=== PATIENT | male | born 1945 | race Caucasian/White ===

== ENCOUNTER 2025-04-11 14:07 | Outpatient (CLI) | payer MEDICARE, BC, SELFPAY ==
--- NOTE | 2025-04-11 14:30 | MR_ITS ---
EXAM: MRI EXAMINATION OF THE LEFT SHOULDER CLINICAL INFORMATION: Left shoulder pain. No history of surgery to this area. Possible rotator cuff tear. TECHNICAL INFORMATION: Coronal STIR as well as axial, sagittal and coronal PD and T2-weighted images acquired. No prior studies for comparison. INTERPRETATION: Bones: There is no Hill-Sachs impaction deformity. Minimal osseous cystic changes alongside the AC joint. No other bone marrow edema pattern. Rotator Cuff: Full thickness, full width tears are identified involving the supraspinatus and infraspinatus tendons. Maximal tendon retraction midway between the glenohumeral joint and mid humeral head level. Marked fatty atrophy involves the infraspinatus muscle belly. The teres minor tendon is intact. Mild to moderate subscapularis tendinopathy. Coracoacromial arch: There is no discrete subacromial osseous spur. The bony acromiohumeral interval is measuring 7 mm. There is no thickening identified of the coracoacromial ligament. Acromioclavicular joint: Moderate AC joint DJD. No deformity of the underlying supraspinatus tendon. Biceps tendon: The long head biceps tendon is intact and nondisplaced from the bicipital groove. There are moderate changes of intra-articular tendinopathy. Glenohumeral joint and labrum: There is a small glenohumeral joint effusion. No discrete loose body within the joint. Patchy chondromalacia along the far posterior margin of the glenoid. There is a 1.2 cm segment of grade IV chondromalacia overlying the superomedial aspect of the humeral head. Blunting and mild tearing involves the superior aspect of the labrum. Blunting and mild tear involves the superior and inferior quadrants of the posterior labrum. There is tearing and fraying of the anteroinferior labrum. No discrete paralabral cyst is identified. CONCLUSION: 1. Full-thickness, full width tears involving the supraspinatus and infraspinatus tendons. Maximal tendon retraction is midway between the glenohumeral joint and mid humeral head level. Marked infraspinatus muscle belly atrophy. 2. Mild to moderate subscapularis tendinopathy. 3. Moderate AC joint DJD with borderline narrowed acromiohumeral interval. 4. Moderate intra-articular long head biceps tendinopathy. 5. There is a moderate-sized segment of grade IV chondromalacia overlying the superomedial humeral head. Additional patchy chondromalacia along the far posterior margin of the glenoid. KES Electronically signed on 04/12/2025 10:14:00 AM by Jl Boss M.D.
== END 2025-04-11 14:08 | disposition home or self-care (01) ==
LOC: MRI 14:11
PROVIDERS: PCP Internal Medicine; Visit Provider Orthopaedic Surgery
DX: M25.512 Pain in left shoulder (principal); M75.102 Unspecified rotator cuff tear or rupture of left shoulder, not specified as traumatic; M19.012 Primary osteoarthritis, left shoulder; M94.212 Chondromalacia, left shoulder
CPT/HCPCS: 73221

== ENCOUNTER 2025-05-14 06:52 | Day surgery (SDC) | payer MEDICARE, BC, SELFPAY ==
[2025-05-14] VITALS (22 sets, daily range): BP systolic 108–166; BP diastolic 55–99; PULSE 58–78; RESP 12–20; TEMP 36.2–37.1; O2SAT 90–98; BMI 40.3
[2025-05-14] MEDS: SODIUM CHLORIDE 0.9 % (FLUSH) 10 ML SYRINGE IVF (07:58)
[2025-05-14] MEDS: LACTATED RINGERS 1000 ML 1,000 ML 100 ML IV ×2 (07:58→12:25)
[2025-05-14] MEDS: CELECOXIB 200 MG CAPSULE PO (07:58)
[2025-05-14] MEDS: OXYCODONE (CR) 10 MG TAB.ER.12H PO (07:58)
[2025-05-14] MEDS: ACETAMINOPHEN 500 MG TABLET 1000 MG PO ×3 (07:59→20:37)
[2025-05-14] MEDS: MIDAZOLAM HCL 1 MG/ML inj IVP (09:26)
--- NOTE | 2025-05-14 09:33 | P.NB_ITS ---
Nerve Block Nerve Block Time Seen by Provider: 09:30 Date Seen: 05/14/25 Type of block requested by surgeon for post-operative analgesia: supraclavicular Side: left Time out performed: Yes Verification of patient name: Yes Verification of date of : Yes Site marking: site marked Name of person performing procedure: Jong Continuous monitoring Was continuous monitoring of O2 sat, B/P, html web developer, recorded every 15 minutes?: Yes Procedure Checklist: sterile prep, needles and gloves Ultrasound guided. Images saved: Yes Medications given in 5ml increments after negative aspiration: Ropivicaine %: 0.5 mL: 20 Needle gauge: 22 Precedex (mcg): 25 Patient tolerated procedure well: Yes Block Charges Block Charge (with Pro Fee): Brachial Plexus Use of Ultrasound Machine for Block: Yes- US Guidance/pain block
--- NOTE | 2025-05-14 09:33 | SUR.PREOP ---
TIME?OUT:?09 PT/RN/MDA?VERIFICATION?OF?SURGICAL?SITE,?PROCEDURE,?AND?CONSENT OBTAINED?PRIOR?TO?INVASIVE?PROCEDURE.
--- NOTE | 2025-05-14 09:34 | P.ANES_ITS ---
Anesthesia Charges Start Date/Time Anesthesia Start Date: 05/14/25 Anesthesia Start Time: 09:48 Stop Date/Time Anesthesia Stop Date: 05/14/25 Anesthesia Stop Time: 12:27 Summary Extremes of Age - Over 70 or under 1: MDA Coding CPT Codes CPT Codes: ANESTH SHOULDER REPLACEMENT - 30327 ([id number]) P3 - PATIENT W/SEVERE SYS DISEASE, QK - WHOLESALE LOAN PROCESSOR 2-4 CNCRNT ANES PROC, QX - DIRECTOR OF STUDENT AFFAIRS SVC W/ MD MED DIRECTION Additional Codes: Summary - Extremes of Age - Over 70 or under 1: MDA ([id number])
--- NOTE | 2025-05-14 09:34 | W.ANESCHARGE ---
Anesthesia Charges Start Date/Time Anesthesia Start Date: 05/14/25 Anesthesia Start Time: 09:48 Stop Date/Time Anesthesia Stop Date: 05/14/25 Anesthesia Stop Time: 12:27 Summary Extremes of Age - Over 70 or under 1: MDA Coding CPT Codes CPT Codes: ANESTH SHOULDER REPLACEMENT - 31693 ([id number]) P3 - PATIENT W/SEVERE SYS DISEASE, QK - COMPLIANCE ENGINEER PRODUCTS 2-4 CNCRNT ANES PROC, QX - ORTHOTIC AND PROSTHETIC TECHNICIAN SVC W/ MD MED DIRECTION Additional Codes: Summary - Extremes of Age - Over 70 or under 1: MDA ([id number])
[2025-05-14] MEDS: TRANEXAMIC ACID 100 MG/ML INJ 1000 MG IV (10:14)
--- NOTE | 2025-05-14 11:58 | CRLHL7_ITS ---
For Patients: As a result of the Cures Act, medical imaging exams and procedure reports are released immediately into your electronic medical record. You may view this report before your referring provider. If you have questions, please contact your health care provider. Indication: Postop Technique: Two views left shoulder Findings/Impression: Hardware from a left reverse total shoulder arthroplasty is in satisfactory position. Bone alignment is normal. No sign of acute fracture. Postop changes are within normal limits. Dictated by Awais Segovia MD @ 05/14/2025 4:09:59 PM (Electronically Signed)
--- NOTE | 2025-05-14 12:09 | PM.ORPRC ---
Procedure Note Date of procedure: 05/14/25 Procedure: PREOPERATIVE DIAGNOSIS: Left shoulder rotator cuff tear arthropathy POSTOPERATIVE DIAGNOSIS: Left shoulder rotator cuff tear arthropathy NAME OF OPERATION: Left upper extremity reverse shoulder arthroplasty, biceps tenodesis SURGEON: Chandu Up MD SUPERVISOR PAINTING DEPARTMENT: ELMO Marcano ANESTHESIA: General endotracheal ESTIMATED BLOOD LOSS: 200 mL COMPLICATIONS: None SPECIMENS: None DRAINS: None PREOPERATIVE ANTIBIOTICS: Ancef 3 grams IMPLANTS: 1. Tornier 25mm x 40mm baseplate 2. 39 mm standard glenosphere 3. 6B humeral stem 4. High eccentric +0 humeral tray 5. 39mm +6 polyethylene INDICATIONS: The patient is a 80-year-old with a longstanding history of severe, unrelenting left shoulder pain secondary to rotator cuff tear arthropathy. Despite appropriate nonoperative management, including activity modification, anti-inflammatories, [id number] pain medication, physical therapy, and injections they continue to have pain and disability. Operative intervention was offered. The risks, benefits and expected outcomes were discussed in detail. These included but were not limited to: Infection, bleeding, injury to blood vessel or nerve, venous thromboembolism. All questions were answered to their satisfaction. Use of an assistant drafter was necessary throughout the case for patient positioning and safety, soft tissue retraction, and closure. PROCEDURE: General anesthesia was administered. The patient was placed in the lazy beach chair position on the operating room table. The left upper extremity was prepped and draped in the usual sterile fashion. A standard deltopectoral incision was made. Subcutaneous dissection was taken with electrocautery to the deltopectoral interval. The cephalic vein was mobilized, lateral branches were cauterized. The vein was taken medially with the pectoralis. We bluntly entered the deltopectoral interval. We freed up the deltoid. The upper 1/3 of the insertion of the pectoralis was divided with cautery. The static retractor was placed. The clavipectoral fascia and CA ligament were divided. The circumflex vessels were controlled with electrocautery. The biceps was dissected out of the bicipital groove, was tagged with a #2 FiberWire suture and divided proximally. A fiberWire suture was placed in the subscapularis. The subscap was subperiosteally elevated off of the lesser tuberosity. The humeral head was delivered into the wound. The intramedullary humeral cutting guide was placed. We made the cut at the anatomic neck, in 30? of retroversion. Humeral sounds were used to assess the diameter of the canal. The broach was placed and had good rotational stability. The calcar reamer was used and the protective base plate cover was placed. Attention was then turned to the glenoid. Hohmann retractors were placed posteriorly. The labrum and biceps stump were sharply debrided. The origin of the inferior glenohumeral ligaments were subperiosteally released off of the glenoid. The drill guide was placed. The guide pin was placed in 0? of cephalic tilt. The reamer was used to bleeding bone. The central drill was used x2. The tap was used. The standard base plate was placed. This had excellent purchase. Locking screws x 2 were placed. The glenosphere was placed, the set screw was tightened. Attention then returned to the humerus. We placed a high eccentric standard base plate and standard poly. We reduced the shoulder and took it through a range of motion. It was found to be stable with appropriate soft tissue tension. Trial humeral components were removed. The biceps was tenodesed in the bicipital groove with drill holes and our previously placed FiberWire suture. We placed #2 FiberWire sutures in the lesser tuberosity for subsequent subscap repair. We assembled the humeral component on the back table. We placed it in the center of our subscapularis repair sutures and tapped it down to our humeral cut. This had excellent purchase. The shoulder was reduced and again was found to be stable with appropriate soft tissue tension. We did a 3 min dilute Betadine solution soak. We irrigated the wound with 3 L of normal saline via pulse lavage. We repaired the subscapularis to the lesser tuberosity with our previously placed FiberWire sutures. The deltopectoral interval was loosely reapproximated with an 0 Vicryl in an interrupted [id number] fashion. Subcutaneous tissues were closed with the 2-0 Vicryl and a running 3-0 Monocryl suture. The skin was sealed with glue. A dry dressing and sling were applied. Sponge and needle counts were correct x2. The patient tolerated the procedure well, there were no apparent complications. They were awakened and extubated in the operating room, taken to the postanesthesia care unit in satisfactory condition. PLAN: The patient will be mobilized with physical therapy. The sling will be used for 6 weeks postoperatively. Active range of motion in forward flexion and abduction as tolerates. No external rotation greater than 0? for 6 weeks postoperatively. They will be discharged to home once medically appropriate.
--- NOTE | 2025-05-14 12:29 | P.ANES_ITS ---
Anesthesia Charges Start Date/Time Anesthesia Start Date: 05/14/25 Anesthesia Start Time: 09:48 Stop Date/Time Anesthesia Stop Date: 05/14/25 Anesthesia Stop Time: 12:27 Summary Extremes of Age - Over 70 or under 1: DAY HAUL OR FARM CHARTER BUS DRIVER Coding CPT Codes CPT Codes: ANESTH SHOULDER REPLACEMENT - 59869 ([id number]) P3 - PATIENT W/SEVERE SYS DISEASE, QK - MACHINE CLERICAL VERIFIER 2-4 CNCRNT ANES PROC, QX - DAY HAUL OR FARM CHARTER BUS DRIVER SVC W/ MD MED DIRECTION Additional Codes: Summary - Extremes of Age - Over 70 or under 1: DAY HAUL OR FARM CHARTER BUS DRIVER ([id number])
--- NOTE | 2025-05-14 12:29 | W.ANESCHARGE ---
Anesthesia Charges Start Date/Time Anesthesia Start Date: 05/14/25 Anesthesia Start Time: 09:48 Stop Date/Time Anesthesia Stop Date: 05/14/25 Anesthesia Stop Time: 12:27 Summary Extremes of Age - Over 70 or under 1: REFERENCE ASSISTANT Coding CPT Codes CPT Codes: ANESTH SHOULDER REPLACEMENT - 76050 ([id number]) P3 - PATIENT W/SEVERE SYS DISEASE, QK - DENTAL SECRETARY 2-4 CNCRNT ANES PROC, QX - REFERENCE ASSISTANT SVC W/ MD MED DIRECTION Additional Codes: Summary - Extremes of Age - Over 70 or under 1: REFERENCE ASSISTANT ([id number])
[2025-05-14] MEDS: CEFAZOLIN 3 GM in 0.9 % SODIUM CHLORIDE Mini-bag 100 ML IVPB ×2 (17:55→23:45)
--- NOTE | 2025-05-14 19:33 | PC.NURSE ---
End of shift-- Very pleasant and cooperative patient arrived from PACU at approximately 1300. VSS and pt is afebrile. SPO2 was noted to be 87-88% on RA and O2 was applied at 2L per n.c. He rated his pain from 3-4 out of 10 and was given Dilaudid and Oxy in addition to scheduled Tylenol and stated that pain was tolerable. Dressing to left shoulder is C/D/I and CMS was WNL. LS CTA. He denied nausea and tolerated a regular diet without difficulty. Report to RIZWANA Thompson.
--- NOTE | 2025-05-14 19:39 | PC.NURSE ---
End of Shift: Patient pleasant and cooperative. Patient vitally stable, lungs clear, BS WNL, IV SL and intact. Patient reports left shoulder pain 1-/, 5 mg of oxy given, and active ice used. Patient currently using cpap, but was titrated down from 2 L of oxygen NS while awake. Patient SBA with ambulation. Patient tolerating regular diet and urinating well. Left shoulder dressing C/D/I.
--- NOTE | 2025-05-14 20:29 | PM.IMCN1 ---
Date of Consult Consult date: 05/14/25 Primary Care Provider: Corrina Penn MD Consult Narrative Reason for consult: Medical comanagement perioperatively. Narrative: Ben Rosario is a 80 year old male with PMH significant for hypertension, hyperlipidemia, BPH, HFrEF, ASCVD s/p 3 vessel CABG, paroxysmal atrial fibrillation, AUDRA on CPAP, GERD, thoracic aortic aneurysm, prior DVT and reasonably well controlled DMII who presented to the hospital for left reverse total surgery. He is seen postoperatively and doing well. Denies chest pain, shortness of breath and nausea. Review of Systems Status of ROS: Reports: 10 or more systems reviewed and unremarkable except as noted in History and below [facility] Medical History (Updated 05/14/25 @ 20:51 by Adry Bello MD) Thoracic aortic aneurysm, without rupture, unspecified ?I71.20 - Thoracic aortic aneurysm, without rupture, unspecified (ICD-10) Paroxysmal atrial fibrillation ?I48.0 - Paroxysmal atrial fibrillation (ICD-10) Chronic systolic (congestive) heart failure ?I50.22 - Chronic systolic (congestive) heart failure (ICD-10) Hypertension ?I10 - Essential (primary) hypertension (ICD-10) Hypertrophy of prostate without urinary obstruction ?N40.0 - Benign prostatic hyperplasia without lower urinary tract symptoms (ICD-10) Primary osteoarthritis involving multiple joints ?M15.0 - Primary generalized (osteo)arthritis (ICD-10) Noise-induced hearing loss ?H83.3X9 - Noise effects on inner ear, unspecified ear (ICD-10) SCC (squamous cell carcinoma) ?C44.92 - Squamous cell carcinoma of skin, unspecified (ICD-10) Deep vein thrombosis (DVT) of left lower extremity (05/21/19) ?I82.402 - Acute embolism and thrombosis of unspecified deep veins of left lower extremity (ICD-10) AUDRA on CPAP ?G47.33 - Obstructive sleep apnea (adult) (pediatric) (ICD-10) Erectile dysfunction ?N52.9 - Male erectile dysfunction, unspecified (ICD-10) Arteriosclerotic heart disease (ASHD) ?I25.10 - Atherosclerotic heart disease of [place] coronary artery without angina pectoris (ICD-10) Mixed hyperlipidemia ?E78.2 - Mixed hyperlipidemia (ICD-10) Leg swelling ?M79.89 - Other specified soft tissue disorders (ICD-10) Type 2 diabetes mellitus ?E11.9 - Type 2 diabetes mellitus without complications (ICD-10) Surgical History S/P CABG x 3 ?Z95.1 - Presence of aortocoronary bypass graft (ICD-10) History of phacoemulsification of cataract of left eye with intraocular lens implantation (03/24/22) ?Z98.42 - Cataract extraction status, left eye (ICD-10) ?Z96.1 - Presence of intraocular lens (ICD-10) History of blepharoplasty (01/28/16) ?Z98.890 - Other specified postprocedural states (ICD-10) History of phacoemulsification of cataract of right eye with intraocular lens implantation (04/07/22) ?Z98.41 - Cataract extraction status, right eye (ICD-10) ?Z96.1 - Presence of intraocular lens (ICD-10) S/P right rotator cuff repair (2012) ?Z98.890 - Other specified postprocedural states (ICD-10) Coronary artery disease involving coronary bypass graft (05/07/19) ?I25.810 - Atherosclerosis of coronary artery bypass graft(s) without angina pectoris (ICD-10) History of cholecystectomy (2006) ?Z90.49 - Acquired absence of other specified parts of digestive tract (ICD-10) S/P angioplasty with stent (07/2001) ?Z95.820 - Peripheral vascular angioplasty status with implants and grafts (ICD-10) History of esophagogastroduodenoscopy (EGD) ?Z98.890 - Other specified postprocedural states (ICD-10) History of total right hip replacement (10/28/08) ?Z96.641 - Presence of right artificial hip joint (ICD-10) History of total left hip replacement (12/2008) ?Z96.642 - Presence of left artificial hip joint (ICD-10) Social History Narrative: former chewing tobacco (2000) Life partner-Elis What is your current living situation?: I presently have a place to live Problems where you live: no known problems In the past 12 months, utilities in danger of being shut off: no In past 12 months, lack of transportation kept you from medical appts, meetings, work, or getting things needed for daily living: no In the past 12 mos, have been you worried that your food would run out before you had money to buy more?: never true In the past 12 mos, the food you bought just didn't last and you didn't have money to buy more?: never true Smoking Status: Never smoker Do you use any of these nicotine containing products: Smokeless Tobacco How often do you have a drink containing alcohol: 4 or more times a week Alcohol type: beer How many standard drinks containing alcohol do you have on a typical day: 3 or 4 How often do you have six or more drinks on one occasion: Never AUDIT-C Alcohol total score: 5 Non-prescribed substance use: denies use Caffeine: Yes (2-3c/day) How often does anyone, including family, friends and others, physically hurt you: never How often does anyone, including family, friends and others, insult or talk down to you: never How often does anyone, including family, friends and others, threaten you with harm: never How often does anyone, including family, friends and others, scream or curse at you: never service: Yes Meds Home Medications and Allergies Home Medications ?Medication ?Instructions ?Recorded ?Confirmed ?Type amlodipine 5 mg tablet 5 mg PO DAILY 04/03/25 05/14/25 History empagliflozin 25 mg tablet 25 mg PO DAILY 04/03/25 05/14/25 History (Jardiance) furosemide 40 mg tablet 40 mg PO Q48H 04/03/25 05/14/25 History glimepiride 4 mg tablet 8 mg PO DAILY 04/03/25 05/14/25 History losartan 50 mg-hydrochlorothiazide 1 tab PO DAILY 04/03/25 05/14/25 History 12.5 mg tablet metformin 1,000 mg tablet 1,000 mg PO BIDWM 04/03/25 05/14/25 History metoprolol succinate 25 mg 25 mg PO DAILY 04/03/25 05/14/25 History tablet,extended release 24 hr nitroglycerin 0.4 mg sublingual 0.4 mg sublingual Q5M PRN 04/03/25 05/14/25 History tablet rosuvastatin 20 mg tablet 20 mg PO HS 04/03/25 05/14/25 History aspirin 81 mg tablet,delayed 81 mg PO DAILY 04/29/25 05/14/25 History release (Adult Aspirin Regimen) acetaminophen 500 mg capsule 500 - 1,000 mg (1 - 2 x 500 mg) PO 05/14/25 Rx Q6H PRN pain #100 caps oxycodone 5 mg tablet 2.5 - 5 mg (0.5 - 1 x 5 mg) PO 05/14/25 Rx Q4-6H PRN Pain #42 tabs sennosides 8.6 mg tablet (Senna 17.2 mg (2 x 8.6 mg) PO BID PRN 05/14/25 Rx Lax) constipation #100 tabs sildenafil 50 mg tablet 50 mg PO DAILY PRN 05/14/25 05/14/25 History Allergies Allergy/AdvReac Type Severity Reaction Status Date / Time No Known Allergies Allergy Verified 05/14/25 07:29 Exam Const: Vital Signs, click to edit/add: Vital Signs - 24 hr 05/14/25 08:13 05/14/25 09:26 05/14/25 12:25 Temperature 98.6 F 97.8 F Pulse Rate 66 58 L 77 Pulse Rate [Pulse Oximeter] Respiratory Rate 16 16 12 Blood Pressure 159/78 H 164/80 H 150/92 H Blood Pressure [Ri ght Arm] Pulse Oximetry 93 97 97 Oxygen Delivery Me thod Room Air Nasal Cannula Nasal Cannula Oxygen Flow Rate 2 5 05/14/25 12:30 05/14/25 12:35 05/14/25 12:40 Temperature Pulse Rate 71 70 72 Pulse Rate [Pulse Oximeter] Respiratory Rate 12 12 12 Blood Pressure 125/73 146/84 H 129/77 Blood Pressure [Ri ght Arm] Pulse Oximetry 98 98 97 Oxygen Delivery Me thod Nasal Cannula Nasal Cannula Nasal Cannula Oxygen Flow Rate 5 5 3 05/14/25 12:45 05/14/25 12:50 05/14/25 12:55 Temperature 97.7 F Pulse Rate 70 67 66 Pulse Rate [Pulse Oximeter] Respiratory Rate 12 12 12 Blood Pressure 133/84 128/73 125/69 Blood Pressure [Ri ght Arm] Pulse Oximetry 97 95 Oxygen Delivery Me thod Nasal Cannula Nasal Cannula Nasal Cannula Oxygen Flow Rate 3 2 2 05/14/25 13:00 05/14/25 13:00 05/14/25 13:15 Temperature 97.7 F 97.7 F Pulse Rate 66 67 63 Pulse Rate [Pulse Oximeter] Respiratory Rate 18 18 18 Blood Pressure 124/56 L 113/55 L 114/60 Blood Pressure [Ri ght Arm] Pulse Oximetry 94 90 93 Oxygen Delivery Me thod Room Air Room Air Nasal Cannula Oxygen Flow Rate 2 2 05/14/25 13:30 05/14/25 13:30 05/14/25 13:45 Temperature 97.7 F Pulse Rate 67 67 62 Pulse Rate [Pulse Oximeter] Respiratory Rate 18 18 18 Blood Pressure 113/55 L 113/55 L 119/59 L Blood Pressure [Ri ght Arm] Pulse Oximetry 90 93 90 Oxygen Delivery Me thod Nasal Cannula Nasal Cannula Nasal Cannula Oxygen Flow Rate 2 2 2 05/14/25 14:00 05/14/25 14:30 05/14/25 15:00 Temperature 97.5 F L Pulse Rate 64 65 68 Pulse Rate [Pulse Oximeter] Respiratory Rate 18 18 20 Blood Pressure 114/63 110/65 126/56 L Blood Pressure [Ri ght Arm] Pulse Oximetry 90 93 95 Oxygen Delivery Me thod Nasal Cannula Nasal Cannula Nasal Cannula Oxygen Flow Rate 2 2 1 05/14/25 15:20 05/14/25 15:20 05/14/25 16:00 Temperature 97.1 F L Pulse Rate 74 Pulse Rate [Pulse Oximeter] 68 Respiratory Rate 20 20 20 Blood Pressure 108/55 L Blood Pressure [Ri ght Arm] Pulse Oximetry 95 93 Oxygen Delivery Me thod Nasal Cannula CPAP Oxygen Flow Rate 2 05/14/25 17:00 05/14/25 18:00 05/14/25 19:50 Temperature 98.8 F 98.3 F 97.1 F L Pulse Rate 73 76 Pulse Rate [Pulse Oximeter] 74 Respiratory Rate 20 18 18 Blood Pressure 111/59 L 112/60 Blood Pressure [Ri ght Arm] 132/68 Pulse Oximetry 90 92 90 Oxygen Delivery Me thod Room Air Room Air Room Air Oxygen Flow Rate Assessment and Plan Assessment and plan (1) Arthritis of left acromioclavicular joint: Problem comment: POD#0 s/p left reverse total shoulder arthroplasty. Doing well, management per orthopedics. Status: Acute (2) Type 2 diabetes mellitus: Problem comment: Continue Jardiance, hold metformin and glimeperide until after discharge Status: Acute (3) Mixed hyperlipidemia: Problem comment: on rosuvastatin Status: Acute (4) AUDRA on CPAP: Problem comment: Continue CPAP Status: Acute (5) Hypertension: Problem comment: BP is currently well controlled. Was softer after surgery. Continue amlodipine, metoprolol. Hold losartan-HCTZ and furosemide with plan to resume after discharge Status: Acute (6) Chronic systolic (congestive) heart failure: Problem comment: No evidence of decompensation. Hold furosemide with plan to resume on discharge Status: Acute (7) Paroxysmal atrial fibrillation: Problem comment: Not on anticoagulation at baseline. Continue metoprolol and aspirin Status: Acute
[2025-05-14] MEDS: ROSUVASTATIN CALCIUM 10 MG TABLET 20 MG PO (20:37)
[2025-05-14] MEDS: SENNOSIDES 1 TAB TABLET 2 TAB PO (20:37)
[2025-05-15] MEDS: ACETAMINOPHEN 500 MG TABLET 1000 MG PO ×2 (01:48→08:32)
[2025-05-15 02:00] VITALS: BP 144/82; PULSE 65; RESP 18; TEMP 36.6; O2SAT 90
--- NOTE | 2025-05-15 05:30 | PC.NURSE ---
Pt alert and oriented x3. Afebrile. Pt reports 0-1/10 pain in left shoulder, managed with Ice pack and scheduled medication. Pt?s left shoulder dressing is CDI. Pt is up SBA, voiding and tolerating a regular diet. Pt denies passing gas yet. ?
[2025-05-15 06:31] LABS: Hematocrit 45.4 % (37.0-53.0); Hemoglobin* 15.3 gm/dL (13.5-17.5); Mean Corpuscular HGB Conc 34 gm/dL (32-36); Mean Corpuscular Hemoglobin 32 pg (26-34); Mean Corpuscular Volume 94 fL (80-100); Red Blood Count 4.82 m/uL (4.30-5.90); White Blood Count* 12.73 K/uL (4.50-11.00)
[2025-05-15 06:35] LABS: Slide Review Reflex No
[2025-05-15 06:47] LABS: Potassium* 4.4 mmol/L (3.6-5.1); Sodium* 136 mmol/L (135-149)
[2025-05-15 06:50] LABS: Blood Urea Nitrogen* 24 mg/dL (7-30); Creatinine* 0.9 mg/dL (0.5-1.5); Est. Creatinine Clearance* 57.93; Estimated Glomerular Filt Rate 86 ml/min
[2025-05-15 07:00] VITALS: RESP 18; O2SAT 94
[2025-05-15 07:20] VITALS: BP 140/76; PULSE 71; RESP 18; TEMP 36.6; O2SAT 94
[2025-05-15] MEDS: AMLODIPINE 5 MG TABLET PO (08:30)
[2025-05-15] MEDS: EMPAGLIFLOZIN 25 MG TABLET PO (08:30)
[2025-05-15] MEDS: METOPROLOL SUCCINATE (XL) 25 MG TAB PO (08:30)
[2025-05-15] MEDS: SENNOSIDES 1 TAB TABLET 2 TAB PO (08:30)
[2025-05-15] MEDS: ASPIRIN 81 MG TABLET EC PO (08:30)
--- NOTE | 2025-05-15 08:51 | P.ORPN_ITS ---
Subjective Subjective Time Seen by Provider: 07:45 Date Seen: 05/15/25 Principal diagnosis: Status post left reverse shoulder replacement Interval history: Ben is comfortable this morning. He is able to flex and extend his wrist. Sensation has returned in the 4 fingers. The thumb is numb. He will discharge to home today. Sling is in place Ortho Exam Narrative Exam Narrative: Alert and oriented x3. Patient is in no acute distress. Converses without labored breathing. Hearing is grossly intact. Ambulates with a current regular gait. Examination of the left shoulder shows the dressing is in place. Mild soft tissue edema. No edema about the forearm hand or fingers. Decreased sensation in the thumb. Normal sensation in the index, long, ring, small fingers. He is able to extend and flex his wrist. He is able to slightly flex and extend the elbow. Sling is in place. Const Vital Signs, click to edit/add: Vital Signs - 24 hr 05/14/25 09:26 05/14/25 12:25 05/14/25 12:30 Temperature 97.8 F Pulse Rate 58 L 77 71 Pulse Rate [Pulse Oximeter] Respiratory Rate 16 12 12 Blood Pressure 164/80 H 150/92 H 125/73 Blood Pressure [Right Arm] Pulse Oximetry 97 97 98 Oxygen Delivery Method Nasal Cannula Nasal Cannula Nasal Cannula Oxygen Flow Rate 2 5 5 05/14/25 12:35 05/14/25 12:40 05/14/25 12:45 Temperature Pulse Rate 70 72 70 Pulse Rate [Pulse Oximeter] Respiratory Rate 12 12 12 Blood Pressure 146/84 H 129/77 133/84 Blood Pressure [Right Arm] Pulse Oximetry 98 97 97 Oxygen Delivery Method Nasal Cannula Nasal Cannula Nasal Cannula Oxygen Flow Rate 5 3 3 05/14/25 12:50 05/14/25 12:55 05/14/25 13:00 Temperature 97.7 F 97.7 F Pulse Rate 67 66 66 Pulse Rate [Pulse Oximeter] Respiratory Rate 12 12 18 Blood Pressure 128/73 125/69 124/56 L Blood Pressure [Right Arm] Pulse Oximetry 95 94 Oxygen Delivery Method Nasal Cannula Nasal Cannula Room Air Oxygen Flow Rate 2 2 05/14/25 13:00 05/14/25 13:15 05/14/25 13:30 Temperature 97.7 F Pulse Rate 67 63 67 Pulse Rate [Pulse Oximeter] Respiratory Rate 18 18 18 Blood Pressure 113/55 L 114/60 113/55 L Blood Pressure [Right Arm] Pulse Oximetry 90 93 90 Oxygen Delivery Method Room Air Nasal Cannula Nasal Cannula Oxygen Flow Rate 2 2 2 05/14/25 13:30 05/14/25 13:45 05/14/25 14:00 Temperature 97.7 F Pulse Rate 67 62 64 Pulse Rate [Pulse Oximeter] Respiratory Rate 18 18 18 Blood Pressure 113/55 L 119/59 L 114/63 Blood Pressure [Right Arm] Pulse Oximetry 93 90 90 Oxygen Delivery Method Nasal Cannula Nasal Cannula Nasal Cannula Oxygen Flow Rate 2 2 2 05/14/25 14:30 05/14/25 15:00 05/14/25 15:20 Temperature 97.5 F L Pulse Rate 65 68 Pulse Rate [Pulse Oximeter] 68 Respiratory Rate 18 20 20 Blood Pressure 110/65 126/56 L Blood Pressure [Right Arm] Pulse Oximetry 93 95 Oxygen Delivery Method Nasal Cannula Nasal Cannula Oxygen Flow Rate 2 1 05/14/25 15:20 05/14/25 16:00 05/14/25 17:00 Temperature 97.1 F L 98.8 F Pulse Rate 74 73 Pulse Rate [Pulse Oximeter] Respiratory Rate 20 20 20 Blood Pressure 108/55 L 111/59 L Blood Pressure [Right Arm] Pulse Oximetry 95 93 90 Oxygen Delivery Method Nasal Cannula CPAP Room Air Oxygen Flow Rate 2 05/14/25 18:00 05/14/25 19:50 05/14/25 23:15 Temperature 98.3 F 97.1 F L Pulse Rate 76 Pulse Rate [Pulse Oximeter] 74 78 Respiratory Rate 18 18 Blood Pressure 112/60 Blood Pressure [Right Arm] 132/68 Pulse Oximetry 92 90 Oxygen Delivery Method Room Air Room Air Oxygen Flow Rate 05/14/25 23:15 05/14/25 23:15 05/15/25 02:00 Temperature 97.6 F 97.8 F Pulse Rate Pulse Rate [Pulse Oximeter] 74 65 Respiratory Rate 18 20 18 Blood Pressure Blood Pressure [Right Arm] 166/99 H 144/82 H Pulse Oximetry 90 93 90 Oxygen Delivery Method Room Air Room Air BiPAP Oxygen Flow Rate 05/15/25 07:00 05/15/25 07:20 05/15/25 07:20 Temperature 97.8 F Pulse Rate Pulse Rate [Pulse Oximeter] 71 71 Respiratory Rate 18 18 18 Blood Pressure Blood Pressure [Right Arm] 140/76 H Pulse Oximetry 94 94 Oxygen Delivery Method Room Air Room Air Oxygen Flow Rate Assessment and Plan Assessment and plan (1) Status post reverse total shoulder replacement: Problem details: 05/14/2025, Dr. Up Status: Acute Assessment and Plan: Plan for discharge is to home when they meet discharge criteria. Patient will wear the sling for 6 weeks post surgery. They can take it off for comfort and for exercises. Activity: no external rotation of the operative shoulder past 0? x 6 weeks. Forward flexion and abduction of the shoulder is allowed as tolerated. They will work on range of motion of the elbow, wrist, fingers once the block has wore off on the operative extremity. Patient will attend outpatient physical therapy for the operative shoulder . For discharge, oxycodone and Tylenol for pain. Do not drive while on narcotic pain medication. Drive only when safe to do so, when they have normal use/function of the upper extremity, this will likely take 6 weeks. Patient will minimize and discontinue the narcotic as soon as possible. Remove dressing in 1 week. Dressing is waterproof. May shower. Surgical glue covers the wound. Do not scrub the wound. Expect swelling and bruising about the shoulder and upper extremity. Use of ice/active ice without restriction. Notify Orthopedics if swelling is ex cessive. notify Orthopedics with any questions or concerns. [phone] Return to Orthopedic clinic next week for a wound check Return to clinic in [address] Up.
--- NOTE | 2025-05-15 10:56 | PC.SOCIAL ---
Book Reviewer Consult: SW unable to see prior to discharge, however, no concerns were noted by nurses or providers in morning rounds.
--- NOTE | 2025-05-15 11:14 | PC.NURSE ---
Discharge: Patient pleasant and cooperative, A&O. VSS, afebrile. SpO2 maintained above 90% on RA. Denies pain. IV removed with tip intact. Discharge instructions provided, all questions answered. Discharged to home with .
== END 2025-05-15 10:00 | disposition home or self-care (01) ==
LOC: OR 06:57 → MEDSURG 09:04
PROVIDERS: PCP Internal Medicine; Visit Provider Orthopaedic Surgery
PROC: 0RRJ0JZ Replacement of Right Shoulder Joint with Synthetic Substitute, Open Approach (ICD-10-PCS; CPT 23472; principal; 2025-05-14 09:30)
DX: M75.122 Complete rotator cuff tear or rupture of left shoulder, not specified as traumatic (principal); M13.812 Other specified arthritis, left shoulder; M75.22 Bicipital tendinitis, left shoulder; G89.18 Other acute postprocedural pain; E11.9 Type 2 diabetes mellitus without complications; I48.0 Paroxysmal atrial fibrillation; G47.33 Obstructive sleep apnea (adult) (pediatric); I11.0 Hypertensive heart disease with heart failure; I50.22 Chronic systolic (congestive) heart failure; Z79.01 Long term (current) use of anticoagulants; Z79.84 Long term (current) use of oral hypoglycemic drugs; Z79.82 Long term (current) use of aspirin; I25.10 Atherosclerotic heart disease of native coronary artery without angina pectoris; Z86.718 Personal history of other venous thrombosis and embolism; Z95.1 Presence of aortocoronary bypass graft; N40.0 Benign prostatic hyperplasia without lower urinary tract symptoms; I71.20 Thoracic aortic aneurysm, without rupture, unspecified; E78.2 Mixed hyperlipidemia
CPT/HCPCS: 23472; 23430; 01638; 36415; 64415; 73030; 76942; 82565; 82962; 84132; 84295; 84520; 85027; 97110; 97165; 97530; 99100; A9270; C1713; C1776; J0330; J0690; J1100; J1171; J2250; J2405; J2704; J3010; J3490; J7120; L3670